=== PATIENT | male | born 1945 | race Caucasian/White ===

== ENCOUNTER 2016-12-29 09:31 | Day surgery (SDC) | payer MEDICARE ==
[2016-12-28 09:59] VITALS: BMI 38.1
[2016-12-29 10:23] VITALS: BP 155/80; PULSE 94; RESP 18
[2016-12-29 10:35] LABS: Prothrombin Time 53.8 sec (9.0-12.0)
[2016-12-29 10:52] LABS: Glucose,Whole Blood 113 mg/dL (75-99)
[2016-12-29 11:04] LABS: INR 5.4 (<1.1)
== END 2016-12-29 11:25 | disposition home or self-care (01) ==
LOC: CATHCVL 09:31
PROVIDERS: ATTEND Internal Medicine Cardiovascular Disease
DX: I48.92 Unspecified atrial flutter (principal)
CPT/HCPCS: 85610

== ENCOUNTER 2017-01-03 10:32 | Day surgery (SDC) | payer MEDICARE ==
[2016-12-30 11:16] VITALS: BMI 38.1
[2017-01-03 11:04] LABS: Glucose,Whole Blood 103 mg/dL (75-99)
[2017-01-03] MEDS ORDERED: SODIUM CHLORIDE 0.9% 1,000 ML IV ONE (11:11)
[2017-01-03 11:38] LABS: INR 1.8 (<1.1); Prothrombin Time 17.2 sec (9.0-12.0)
[2017-01-03] MEDS: BENZOCAINE SPRAY 100 APPLIC/CAN MUCOUS MEM ONE ×2 (12:00→12:03)
[2017-01-03] MEDS ORDERED: SODIUM CHLORIDE 0.9% 500 ML IV ONE (12:01)
[2017-01-03] MEDS ORDERED: fentaNYL (PF) 50 MCG/ML 2 ML AMP IV ONE (12:28)
[2017-01-03] MEDS ORDERED: MIDAZOLAM 2 MG/2 ML VIAL IV ONE (12:29)
[2017-01-03 12:39] VITALS: RESP 16
[2017-01-03] MEDS ORDERED: SODIUM CHLORIDE 0.9% 1,000 ML IV SCH ×2 (12:45→13:00)
[2017-01-03 15:09] VITALS: PULSE 76
[2017-01-03 15:10] VITALS: BP 149/85; TEMP 98.6
--- NOTE | 2017-01-03 19:04 | ECHOT ---
DATE OF SERVICE: CLINICAL INFORMATION: This transesophageal echocardiogram was performed to assess the bioprosthetic aortic valve. The patient was given intravenous sedation with Versed and fentanyl and transesophageal echocardiogram was performed without any complications. FINDINGS: Left ventricular chamber is normal in size. There is evidence of left ventricular hypertrophy with normal left ventricular systolic function. Mitral valve morphology is normal. Mild mitral regurgitation is noted. Left atrial appendage is clear. There is a bioprosthetic valve visualized in aortic position. There is thickening of the leaflet noted. The main gradient across the aortic valve is about 35 mmHg. No aortic regurgitation is noted. Tricuspid valve morphology is normal. Interatrial septum is intact. There is no evidence of any PFO. There is no evidence of thrombus or any vegetations on the bioprosthetic valve. FINAL IMPRESSION: There is evidence of thickening of the bioprosthetic aortic valve where the leaflets are opening fairly nicely. There is increase in the gradient across the bioprosthetic valve. However, there is no evidence of any thrombus or vegetations on the prosthetic wall. No evidence of aortic regurgitation noted. There is no evidence of thrombus in left atrial appendage. The left ventricular systolic function is normal. There is evidence of left ventricular hypertrophy.
== END 2017-01-03 14:00 | disposition home or self-care (01) ==
LOC: CATHCVL 10:32
PROVIDERS: ATTEND Internal Medicine Cardiovascular Disease
DX: I48.92 Unspecified atrial flutter (principal); Z95.2 Presence of prosthetic heart valve; I49.3 Ventricular premature depolarization; I51.7 Cardiomegaly; I34.0 Nonrheumatic mitral (valve) insufficiency; I10 Essential (primary) hypertension; E11.9 Type 2 diabetes mellitus without complications; E78.2 Mixed hyperlipidemia; Z79.899 Other long term (current) drug therapy; Z79.82 Long term (current) use of aspirin; Z79.84 Long term (current) use of oral hypoglycemic drugs; Z87.891 Personal history of nicotine dependence; Z82.3 Family history of stroke; Z82.49 Family history of ischemic heart disease and other diseases of the circulatory system
CPT/HCPCS: 93312; 93320; 93325; 85610; J2250; J3010; 80048; 85027

== ENCOUNTER 2017-01-04 10:18 | Day surgery (SDC) | payer MEDICARE ==
[2016-12-30 11:27] VITALS: BMI 38.1
[~2017-01-04 10:18] MED LIST: SODIUM CHLORIDE 0.9% 1,000 ML IV SCH
[2017-01-04 10:58] LABS: Glucose,Whole Blood 100 mg/dL (75-99)
[2017-01-04 11:14] LABS: INR 1.8 (<1.1); Prothrombin Time 17.7 sec (9.0-12.0)
[2017-01-04] MEDS ORDERED: MIDAZOLAM 2 MG/2 ML VIAL ONE (12:04)
[2017-01-04] MEDS ORDERED: fentaNYL (PF) 50 MCG/ML 2 ML AMP ONE (12:04)
[2017-01-04] MEDS ORDERED: DEXAMETHASONE SOD PHOS (MDV) 100 MG/10 ML VIAL ONE (12:04)
[2017-01-04] MEDS ORDERED: HEPARIN SODIUM,PORCINE/D5W PMX 25,000 UNIT in DEXTROSE/WATER 1 500ML.BAG IV ONE (12:04)
[2017-01-04] MEDS ORDERED: HEPARIN SODIUM 1,000 UNIT/ML VIAL ONE (12:04)
[2017-01-04] MEDS ORDERED: PHENYLEPHRINE-0.9% NACL SYG 1 MG/10 ML SYRINGE ONE (12:04)
[2017-01-04] MEDS ORDERED: PROPOFOL 10 MG/ML 20 ML VIAL IV ONE (12:04)
[2017-01-04] MEDS ORDERED: SODIUM CHLORIDE 0.9% 1,000 ML IV ONE (12:04)
[2017-01-04] MEDS ORDERED: ISOPROTERENOL 250 MCG/1.25 ML SYR IV ONE (12:04)
[2017-01-04] MEDS ORDERED: SUCCINYLCHOLINE CHLORIDE VIAL 200 MG/10 ML VIAL IV ONE (12:04)
[2017-01-04] MEDS ORDERED: LIDOCAINE 2% INJ 20 MG/ML SQ ONE ×2 (12:46→12:49)
[2017-01-04] MEDS ORDERED: HEPARIN SODIUM (1,000 UNIT/ML) 1,000 UNIT in SODIUM CHLORIDE 0.9% 1,000 ML IRRIGATION ONE (14:00)
[2017-01-04] MEDS ORDERED: ACETAMINOPHEN IV (For NPO) 1,000 MG in EMPTY BAG 1 BAG IVPB ONE (16:11)
[2017-01-04] MEDS ORDERED: ACETAMINOPHEN TAB 325 MG TAB PO PRN (16:11)
[2017-01-04] MEDS ORDERED: HYDROcodone/APAP 5-325MG 1 EACH TAB PO PRN (16:11)
[2017-01-04] MEDS ORDERED: LEVOTHYROXINE SODIUM PO SCH (16:15)
[2017-01-04 16:26] LABS: Glucose,Whole Blood 112 mg/dL (75-99)
--- NOTE | 2017-01-04 17:48 | PCN ---
DATE OF PROCEDURE: 01/04/2017 This is a 71-year-old male patient who was admitted with very symptomatic atrial flutter. He has left ventricular hypertrophy on account of aortic stenosis, status post bioprosthetic aortic valve which is calcified. He has a mild to moderate elevated gradient. He underwent a KELLE recently by Dr. Jaret Willoughby, who felt that medical management may be indicated at this time and does not require any valve replacement. The patient was brought in for an atrial flutter ablation. His INR was still subtherapeutic, but his KELLE did not show any intracardiac mass or thrombus. IV heparin was given throughout the procedure and the dose of Coumadin was increased to 12 mg p.o. daily. The patient was brought to the EP lab in a fasting state. Written informed consent was obtained prior to the procedure. The initial part of the procedure was performed with conscious sedation, but because he has severe sleep apnea, toward the end during the ablation procedure he had to be intubated briefly to provide catheter stability and complete the ablation ( ). Venous sheaths were placed in the right and left femoral veins. Via these, diagnostic catheters were placed in the right half (high right atrial catheter, His bundle catheter, RV catheter and the coronary sinus catheter). Baseline measurements were as follows: sinus cycle 884 ms, ID interval 236 ms, QRS 75 ms, QT 389 ms, AH interval 133 ms, HV interval 67 ms. Sinus node recovery times at 600, 500 and 400 ms were 1295, 1331, and 1228 ms. Corresponding corrected sinus node recovery times were within normal limits. There were no obvious ( ) slow pathway conduction. No delta waves were noted. AV node Wenckebach block 500 ms. AV node ERP 600/380 ms. AV node Wenckebach block from the coronary sinus was 600 ms. Isuprel was started. AV node Wenckebach block improved to 290 ms. Left bundle branch block aberrancy was noted. VA Wenckebach block 320 ms. Atrial extrastimulation was performed. ERP ( ) /310 ms. No other SVT was induced. No atrial fibrillation was induced. Intracardiac echocardiography was performed. The right atrial isthmus was identified. Interatrial septum was identified. Three-D mapping was performed. The isthmus was identified. In the mid isthmus area there was a small artery noted (branch of the RCA). RF ablation was performed from the second ( ) to the eustachian ridge. A complete ( ) block was made and bidirectional block was proven. This was a difficult ablation. Catheter stability was an issue and therefore intubation had to be performed. In addition, the mid isthmus was somewhat difficult to ablate on account of the arterial flow within the artery in the mid isthmus acting as a heat ( ). However, good contact force was achieved. Good power was achieved. There were no ECG changes noted. There were no ST-T changes noted with ablation. Following ablation, EKG was repeated and no ST-T changes were noted. All catheters were removed at the end of the procedure. Heparin was discontinued. Sheaths were removed. The dose of Coumadin was then increased to 12.5 mg p.o. daily. RESULT: 1. Successful ablation for atrial flutter with bidirectional block. 2. Normal sinus node function with normal AV node function without evidence for slow pathway conduction ( ) any excessive pathway conduction. Left bundle branch block aberrancy noted with atrial pacing.
[2017-01-04] MEDS ORDERED: WARFARIN 10 MG TAB PO SCH (18:00)
[2017-01-04] MEDS ORDERED: WARFARIN 2.5 MG TAB PO SCH (18:00)
[2017-01-04] MEDS ORDERED: FUROSEMIDE 20 MG TAB PO SCH (21:00)
[2017-01-04] MEDS ORDERED: PRAVASTATIN SODIUM 40 MG TAB PO SCH (21:00)
[2017-01-04] MEDS: HYDROcodone/APAP 7.5-325MG 1 EACH TAB PO PRN (21:27)
[2017-01-04 21:51] LABS: Glucose,Whole Blood 226 mg/dL (75-99)
[2017-01-04] MEDS: metFORMIN 500 MG TAB PO SCH (22:20)
[2017-01-04] MEDS: GABAPENTIN 300 MG CAP PO SCH (22:20)
[2017-01-05] MEDS: HYDROcodone/APAP 7.5-325MG 1 EACH TAB PO PRN ×2 (04:42→08:52)
[2017-01-05] MEDS ORDERED: LEVOTHYROXINE 100 MCG TAB PO SCH (06:30)
[2017-01-05] MEDS ORDERED: LEVOTHYROXINE 75 MCG TAB PO SCH (06:30)
[2017-01-05 07:04] LABS: Glucose,Whole Blood 162 mg/dL (75-99)
[2017-01-05 07:32] LABS: INR 2.6 (<1.1); Prothrombin Time 25.5 sec (9.0-12.0)
--- NOTE | 2017-01-05 08:39 | PN ---
Harry Mast is a 71-year-old male patient of Dr. Jaret Willoughby who underwent atrial flutter ablation yesterday. He is doing well. He denied any chest discomfort, dizziness, lightheadedness. He has a sore throat from being intubated. He also underwent KELLE several days back. On examination, his groins have healed well. There is no hematoma, no swelling, no tenderness. He is ambulating in the hallways. Blood pressure is 144/74 mmHg, temperature 97.8 degrees Fahrenheit, pulse rate in the 70s. Head and neck examination is normal. Heart sounds are normal. Lungs are clear on auscultation. IMPRESSION: 1. Very symptomatic atrial flutter. 2. Atrial fibrillation. 3. Left ventricular hypertrophy secondary to aortic valve disease and hypertension. 4. Aortic valve disease, status post aortic valve replacement bioprosthetic with moderate prosthetic valve stenosis. PLAN: Continue Coumadin at 10 mg p.o. daily. PT, INR check in [address] Willoughby in 5 days.
[2017-01-05] MEDS: metFORMIN 500 MG TAB PO SCH (08:47)
[2017-01-05] MEDS: GABAPENTIN 300 MG CAP PO SCH (08:48)
[2017-01-05] MEDS ORDERED: LINAGLIPTIN 5 MG TABLET PO SCH (09:00)
[2017-01-05] MEDS ORDERED: FUROSEMIDE 40 MG TAB PO SCH (09:00)
[2017-01-05] MEDS ORDERED: LISINOPRIL 20 MG TAB PO SCH (09:00)
[2017-01-05] MEDS ORDERED: ASPIRIN 81 MG CHEW PO SCH (09:00)
[2017-01-05] MEDS ORDERED: amLODIPine 5 MG TAB PO SCH (09:00)
[2017-01-05 12:02] LABS: Glucose,Whole Blood 169 mg/dL (75-99)
[2017-01-05 12:56] VITALS: BP 144/72; PULSE 67; RESP 16; TEMP 97.2
--- NOTE | 2017-01-07 09:59 | CDI ---
Hannah. We need some more information in order to properly code and bill for this encounter. Your Procedure Note states "the initial part of the procedure was performed with conscious sedation", but there is no documentation of drugs administered for that purpose. Was the conscious sedation performed or not? In order to charge for conscious sedation, we need to know the length of time and we need documentation of the drug administration. If conscious sedation was not done, then we need an addendum to the operative report stating it was not. If there is any confusion about what is needed, please contact my trust manager assistant, Lisbet Tao, . Thank you JACK Rojas
[2017-01-11] MEDS ORDERED: LEVOTHYROXINE 88 MCG TAB PO SCH (06:30)
--- NOTE | 2017-01-28 14:48 | CDI ---
Hannah. We need some more information in order to properly code and bill for this encounter. Your Procedure Note states "the initial part of the procedure was performed with conscious sedation", but there is no documentation of drugs administered for that purpose. Was the conscious sedation performed or not? In order to charge for conscious sedation, we need to know the length of time and we need documentation of the drug administration. If conscious sedation was not done, then we need an addendum to the operative report stating it was not. If there is any confusion about what is needed, please contact my mobile marketing manager, Lisbet Tao, . Thank you JACK Rojas
--- NOTE | 2017-02-11 15:01 | PCN ---
DATE OF PROCEDURE: ADDENDUM: Unconscious sedation was utilized via M.A.C. technique with rapid sequence intubation and subsequent intubation performed with assistance of a Glidescope. This is in keeping with the anesthesia record of the proper anesthesia being performed on this patient.
== END 2017-01-05 13:33 | disposition home or self-care (01) ==
LOC: CATHEP 10:18 → 3OBS 15:39 → CATHEP 01-05 13:33
PROVIDERS: ATTEND Internal Medicine Clinical Cardiac Electrophysiology
DX: I48.92 Unspecified atrial flutter (principal); I48.91 Unspecified atrial fibrillation; I51.7 Cardiomegaly; I35.0 Nonrheumatic aortic (valve) stenosis; Z95.2 Presence of prosthetic heart valve; I10 Essential (primary) hypertension; I44.7 Left bundle-branch block, unspecified; I44.0 Atrioventricular block, first degree; R06.02 Shortness of breath; E78.2 Mixed hyperlipidemia; E11.9 Type 2 diabetes mellitus without complications; G47.33 Obstructive sleep apnea (adult) (pediatric); Z82.49 Family history of ischemic heart disease and other diseases of the circulatory system; Z79.01 Long term (current) use of anticoagulants; Z79.84 Long term (current) use of oral hypoglycemic drugs; Z79.82 Long term (current) use of aspirin; Z79.899 Other long term (current) drug therapy; Z88.5 Allergy status to narcotic agent; Z88.0 Allergy status to penicillin; Z87.891 Personal history of nicotine dependence
CPT/HCPCS: 93623; 93662; 93613; 93653; 85610 ×2; C1894 ×2; C1769 ×2; C1893; C1730 ×3; C1759; C1732; J2001; J2250; J0330; J1644 ×2; J3010; J1100; J2370; J2704

== ENCOUNTER → 2018-12-14 | Day surgery (SDC) | payer MEDICARE ==
[2018-12-08 11:59] VITALS: BMI 37.3
[~2018-12-14] MED LIST changes: +BENZOCAINE SPRAY 1 CAN MUCOUS MEM ONE; +MIDAZOLAM 2 MG/2 ML VIAL IVP ONE; -SODIUM CHLORIDE 0.9% 1,000 ML IV SCH; +SODIUM CHLORIDE 0.9% 500 ML 500 ML IV ONE; +fentaNYL (PF) 50 MCG/ML 2 ML AMP IVP ONE; +fentaNYL (PF) 50 MCG/ML 2 ML AMP ONE
[2018-12-14 10:06] VITALS: TEMP 98.2
[2018-12-14 10:08] LABS: Glucose,Whole Blood 105 mg/dL (75-99)
[2018-12-14 10:16] LABS: INR 2.4 (<1.2); Prothrombin Time 23.4 sec (9.0-12.0)
[2018-12-14 12:19] VITALS: BP 139/67; PULSE 68; RESP 18
--- NOTE | 2018-12-14 12:25 | ECHOT ---
TRANSESOPHAGEAL ECHOCARDIOGRAM This transesophageal echocardiogram was performed to assess the bioprosthetic aortic valve stenosis. This patient has a history of aortic valve stenosis as an outpatient. Transthoracic echocardiogram revealed a peak gradient of 95 and mean gradient of 58 mmHg across the aortic valve as well as moderate degree of aortic regurgitation. In view of that, the patient was advised further evaluation with a transesophageal echocardiogram. PROCEDURE: Patient was given intravenous sedation with Versed and fentanyl and transesophageal echocardiogram was performed without any complications. The left ventricular chamber is normal in size with moderate degree of left ventricular hypertrophy and normal left ventricular systolic function. Left atrium is moderately enlarged. Mitral valve morphology is normal. There is mild to moderate degree of mitral regurgitation noted. Left atrial appendage is probably clipped in the past. No flow was noted in the left atrial appendage. There is no evidence of any thrombus. The bioprosthetic aortic valve is thickened. There is a evidence of turbulent flow in the left ventricular outflow tract as well as severe turbulent flow noted in the ascending aorta. There is evidence of moderate degree of aortic regurgitation. Interatrial septum is intact. There is no evidence of any PFO. Descending thoracic aorta shows evidence of moderate degree of diffuse atherosclerotic plaque. FINAL IMPRESSION: 1. There is a thickening and calcification of the bioprosthetic aortic valve with significant turbulence across the aortic valve. The mean gradient of 58 mmHg was noted by transthoracic echo. There is a moderate degree of aortic regurgitation. It appears that part of the gradient across the prosthetic is secondary to prosthetic mismatch. 2. Left ventricular systolic function is normal. There is moderate degree of left ventricular hypertrophy. There is evidence of mild to moderate aortic regurgitation. RECOMMENDATIONS: We will refer the patient to [facility] for possible TAVR. MMODL / IJN: [id number] /
== END ==
LOC: CATHCVL 09:29
PROVIDERS: ATTEND Internal Medicine Cardiovascular Disease
DX: I35.1 Nonrheumatic aortic (valve) insufficiency (principal); Z95.2 Presence of prosthetic heart valve; I11.9 Hypertensive heart disease without heart failure; E78.2 Mixed hyperlipidemia; E11.9 Type 2 diabetes mellitus without complications; E66.9 Obesity, unspecified; Z68.37 Body mass index [BMI] 37.0-37.9, adult; Z82.49 Family history of ischemic heart disease and other diseases of the circulatory system; Z87.891 Personal history of nicotine dependence; Z79.01 Long term (current) use of anticoagulants; Z79.84 Long term (current) use of oral hypoglycemic drugs; Z79.1 Long term (current) use of non-steroidal anti-inflammatories (NSAID); Z79.82 Long term (current) use of aspirin; Z79.890 Hormone replacement therapy; Z79.899 Other long term (current) drug therapy; Z88.5 Allergy status to narcotic agent; Z88.0 Allergy status to penicillin
CPT/HCPCS: 93312; 93320; 93325; 85610; J2250; J3010

== ENCOUNTER → 2018-12-19 | Outpatient (CLI) | payer MEDICARE ==
--- NOTE | 2018-12-19 08:26 | CT ---
EXAMINATION TYPE: CT sinus wo con DATE OF EXAM: 12/19/2018 COMPARISON: None HISTORY: Multiple injuries over the years. Complains of congestion and pressure. CT DLP: [address] of the paranasal sinuses was performed in the axial and coronal planes. Bone and soft tissue settings are submitted. There is severe mucosal thickening involving the ethmoid air cells. Underlying polyposis is not exclu ded. There is mild mucosal thickening of the maxillary sinuses, frontal sinuses and sphenoid sinus. A ir-fluid level left maxillary sinus may reflect acute component. The osteal meatal units are occluded bilaterally. The nasal septum is deviated from right to left. No bony destructive changes are seen within the field of view. IMPRESSION: 1. Pansinusitis with underlying ethmoidal polyposis difficult to exclude. 2. Air-fluid level left maxillary sinus may reflect the acute component. 3. Obstruction of the bilateral ostiomeatal units.
== END | disposition home or self-care (01) ==
LOC: RADCTMAIN 08:04
PROVIDERS: ATTEND Otolaryngology
DX: J34.89 Other specified disorders of nose and nasal sinuses (principal); J32.9 Chronic sinusitis, unspecified
CPT/HCPCS: 70486

== ENCOUNTER → 2019-01-02 | Outpatient (CLI) | payer MEDICARE ==
[2019-01-02 12:11] LABS: Basophils # (A) 0.1 k/uL (0-0.2); Basophils % (A) 1 %; Eosinophils # (A) 0.6 k/uL (0-0.7); Eosinophils % (A) 6 %; HGB 12.1 gm/dL (13.0-17.5); Lymphocytes % (A) 35 %; MCH 29.2 pg (25.0-35.0); MCHC 31.8 g/dL (31.0-37.0); MCV 91.8 fL (80.0-100.0); Mean Platelet Volume 7.9; Monocytes # (A) 0.6 k/uL (0-1.0); Monocytes % (A) 7 %; Neutrophils # (A) 3.9 k/uL (1.3-7.7); Neutrophils % (A) 46 %; Platelet Count 208 k/uL (150-450); RBC 4.14 m/uL (4.30-5.90); RDW 14.7 % (11.5-15.5); WBC 8.6 k/uL (3.8-10.6)
[2019-01-02 16:33] LABS: Albumin 4.8 g/dL (3.80-4.90); Anion Gap 7.8 mmol/L (4.00-12.00); Carbon Dioxide 27.2 mmol/L (21.6-31.8); Globulin 2.4 g/dL (1.6-3.3); Potassium 4.1 mmol/L (3.5-5.5); Total Bilirubin 0.8 mg/dL (0.3-1.2); Total Protein 7.2 g/dL (6.2-8.2)
== END ==
LOC: LABWHC1 09:54
PROVIDERS: ATTEND Student in an Organized Health Care Education/Training Program
DX: I35.1 Nonrheumatic aortic (valve) insufficiency (principal)
CPT/HCPCS: 36415; 80053; 83880; 85025

== ENCOUNTER → 2019-03-02 | Outpatient (CLI) | payer MEDICARE ==
[2019-03-02 10:49] LABS: Basophils # (A) 0.1 k/uL (0-0.2); Basophils % (A) 1 %; Eosinophils # (A) 0.5 k/uL (0-0.7); Eosinophils % (A) 8 %; HCT 35.6 % (39.0-53.0); HGB 11.2 gm/dL (13.0-17.5); Lymphocytes # (A) 2.2 k/uL (1.0-4.8); Lymphocytes % (A) 33 %; MCH 29.3 pg (25.0-35.0); MCHC 31.5 g/dL (31.0-37.0); MCV 93.1 fL (80.0-100.0); Mean Platelet Volume 8.1; Monocytes # (A) 0.4 k/uL (0-1.0); Monocytes % (A) 6 %; Neutrophils # (A) 3.1 k/uL (1.3-7.7); Neutrophils % (A) 48 %; Platelet Count 181 k/uL (150-450); RBC 3.82 m/uL (4.30-5.90); RDW 15.2 % (11.5-15.5); WBC 6.5 k/uL (3.8-10.6)
[2019-03-02 11:02] LABS: INR 1.5 (<1.2)
[2019-03-02 16:08] LABS: Albumin 4.4 g/dL (3.80-4.90); Anion Gap 7.8 mmol/L (4.00-12.00); Calcium 9.6 mg/dL (8.7-10.3); Carbon Dioxide 26.2 mmol/L (21.6-31.8); Globulin 2.2 g/dL (1.6-3.3); Potassium 3.9 mmol/L (3.5-5.5); Total Bilirubin 0.8 mg/dL (0.3-1.2); Total Protein 6.6 g/dL (6.2-8.2)
== END | disposition home or self-care (01) ==
LOC: LABWHC1 09:38
PROVIDERS: ATTEND Student in an Organized Health Care Education/Training Program
DX: I35.0 Nonrheumatic aortic (valve) stenosis (principal); I51.9 Heart disease, unspecified
CPT/HCPCS: 36415; 80053; 83735; 83880; 85025; 85610

== ENCOUNTER → 2023-02-02 | Outpatient (CLI) | payer MEDICARE ==
[2023-02-02 16:12] LABS: African American GFR (CKD) 64.9 (60.0-200.0); Albumin 4.7 g/dL (3.8-4.9); Albumin/Globulin Ratio 1.65 (1.60-3.17); Anion Gap 11.7 mmol/L (10.00-18.00); BUN/Creat Ratio 18.4 Ratio (12.00-20.00); Calcium 10.2 mg/dL (8.7-10.3); Carbon Dioxide 27.7 mmol/L (20.0-27.5); Globulin 2.8 g/dL (1.6-3.3); Potassium 4.2 mmol/L (3.5-5.5); Total Bilirubin 0.7 mg/dL (0.30-1.20); Total Protein 7.5 g/dL (6.2-8.2)
== END | disposition home or self-care (01) ==
LOC: LABWHC1 09:31
PROVIDERS: ATTEND Nurse Practitioner Adult Health
DX: I48.0 Paroxysmal atrial fibrillation (principal)
CPT/HCPCS: 36415; 80053; 83880; 84443

== ENCOUNTER 2023-03-14 05:41 | Day surgery (SDC) | payer MEDICARE ==
[~2023-03-14 05:41] MED LIST changes: -BENZOCAINE SPRAY 1 CAN MUCOUS MEM ONE; +LACTATED RINGERS 1,000 ML IV SCH; +LIDOCAINE 1% (10MG/ML) FOR IV START INTRADERMA PRN; -MIDAZOLAM 2 MG/2 ML VIAL IVP ONE; -SODIUM CHLORIDE 0.9% 500 ML 500 ML IV ONE; -fentaNYL (PF) 50 MCG/ML 2 ML AMP IVP ONE; -fentaNYL (PF) 50 MCG/ML 2 ML AMP ONE
[2023-03-14 06:36] VITALS: TEMP 97.2
[2023-03-14 06:55] LABS: Glucose,Whole Blood 101 mg/dL (70-110)
[2023-03-14] MEDS ORDERED: PROPOFOL 10 MG/ML 20 ML VIAL IV ONE (07:05)
[2023-03-14] MEDS ORDERED: LIDOCAINE 2% INJ 20 MG/ML (2 ML VIAL) ONE (07:05)
[2023-03-14] MEDS ORDERED: BENZOCAINE SPRAY 1 CAN TOPICAL ONE (07:13)
[2023-03-14 07:19] LABS: African American GFR (CKD) 66 (>60 ml/min/1.73 sqM); Anion Gap 11 mmol/L; Blood Urea Nitrogen 33 mg/dL (9-20); Calcium 9.3 mg/dL (8.4-10.2); Carbon Dioxide 27 mmol/L (22-30); Chloride 103 mmol/L (98-107); Glucose 107 mg/dL (74-99); Non-African American GFR(CKD) 58 (>60 ml/min/1.73 sqM); Potassium 3.6 mmol/L (3.5-5.1); Sodium 141 mmol/L (137-145)
--- NOTE | 2023-03-14 07:36 | P.PCN ---
Date of Procedure: 03/14/23 Description of Procedure: Indication: Atrial fibrillation Procedure Description: After explaining the procedure to the patient, it's risk and complications, blood pressure, heart rate and O2 saturation were monitored. The throat was sprayed with Cetacaine. Patient received sedation per anesthesia department. The probe was introduced into the esophagus without difficulty. Images were obtained. Following that, the probe was removed. There was no immediate complication. Findings: Left atrial size is dilated, left atrial appendage is normal. Left ventricular size and systolic function are normal. A bioprosthetic aortic valve was noted. Mitral valve appears to be normal. The tricuspid valve is normal. No pericardial effusion was noted. Descending thoracic aorta revealed mild atherosclerotic changes. Contrast bubble study revealed no shunting across the intra-atrial septum. Doppler: Pulse wave and color Doppler were obtained, revealed mild mitral and tricuspid regurgitation with trace aortic regurgitation. There was no shunting across the intra-atrial septum Conclusion: 1. Dilated left atrium with normal appearance of the left atrial appendage 2. Normal physical size and systolic function 3. Bioprosthetic aortic valve with normal appearance and trace aortic regurgitation 4. And mild mitral and tricuspid regurgitation 5. No pericardial effusion Cardioversion: After performing a KELLE and obtaining sedated state a synchronized biphasic cardioversion using 150, 200 and subsequently 200 J were unsuccessful in restoring sinus mechanism, there was no immediate complications.
[2023-03-14] MEDS ORDERED: SODIUM CHLORIDE 0.9% 1,000 ML IV SCH (07:45)
[2023-03-14 07:46] VITALS: RESP 16
[2023-03-14 08:28] VITALS: BP 144/89; PULSE 84
[2023-03-14] MEDS ORDERED: NON FORMULARY DRUG (Fenofibrate Nanocrystallized [Fenofibrate] 145 MG Tablet) PO SCH (09:00)
[2023-03-14] MEDS ORDERED: RIVAROXABAN 20 MG TAB PO SCH (09:00)
[2023-03-14] MEDS ORDERED: amLODIPine 5 MG TAB PO SCH (09:00)
[2023-03-14] MEDS ORDERED: LEVOTHYROXINE SODIUM 175 MCG PO SCH (09:00)
[2023-03-14] MEDS ORDERED: NON FORMULARY DRUG (Sitagliptin Phos/Metformin Hcl [Janumet 50-1,000 Mg Tablet] 1 EACH Tab PO SCH (09:00)
[2023-03-14] MEDS ORDERED: LOSARTAN 50 MG TAB PO SCH (09:00)
[2023-03-14] MEDS ORDERED: MELOXICAM 15 MG PO SCH (21:00)
[2023-03-14] MEDS ORDERED: PRAVASTATIN SODIUM 40 MG TAB PO SCH (21:00)
[2023-03-14] MEDS ORDERED: FUROSEMIDE 40 MG TAB PO SCH (21:00)
== END 2023-03-14 08:45 | disposition home or self-care (01) ==
LOC: OR 05:41
PROVIDERS: ATTEND Internal Medicine Interventional Cardiology
DX: I48.91 Unspecified atrial fibrillation (principal); I08.3 Combined rheumatic disorders of mitral, aortic and tricuspid valves
CPT/HCPCS: 93312; 93320; 93325; 92960; 80048; J2704; J2001

== ENCOUNTER 2023-04-17 17:41 | Observation (INO) | payer MEDICARE ==
[2023-04-17] MEDS ORDERED: ASPIRIN 81 MG PO STA (18:08)
[2023-04-17] MEDS ORDERED: LIDOCAINE 5% PATCH TOPICAL STA (18:09)
[2023-04-17] MEDS ORDERED: KETOROLAC 15 MG/ML 1 ML VIAL IVP STA (18:09)
[2023-04-17] MEDS ORDERED: CYCLOBENZAPRINE 10 MG TAB PO STA (18:09)
[2023-04-17 18:27] LABS: Basophils % (A) 0 %; Eosinophils # (A) 0.7 k/uL (0-0.7); Eosinophils % (A) 8 %; HCT 45.4 % (39.0-53.0); HGB 15.6 gm/dL (13.0-17.5); Lymphocytes # (A) 3.5 k/uL (1.0-4.8); Lymphocytes % (A) 40 %; MCH 32.8 pg (25.0-35.0); MCHC 34.5 g/dL (31.0-37.0); MCV 95.3 fL (80.0-100.0); Mean Platelet Volume 8.8; Monocytes # (A) 0.7 k/uL (0-1.0); Monocytes % (A) 9 %; Neutrophils # (A) 3.3 k/uL (1.3-7.7); Neutrophils % (A) 38 %; Platelet Count 192 k/uL (150-450); RBC 4.76 m/uL (4.30-5.90); RDW 13.5 % (11.5-15.5); WBC 8.7 k/uL (3.8-10.6)
[2023-04-17 18:45] LABS: NT-Pro-B-Type Natriuretic Pept 85 pg/mL; Partial Thromboplastin Time 29.1 sec (22.0-30.0); Prothrombin Time 10.5 sec (9.0-12.0)
--- NOTE | 2023-04-17 18:45 | XR ---
EXAMINATION TYPE: XR chest 2V DATE OF EXAM: 04/17/2023 6:19 PM COMPARISON: None TECHNIQUE: XR chest 2V Frontal and lateral views of the chest. CLINICAL INDICATION:Male, 78 years old with history of Chest Pain; FINDINGS: Lungs/Pleura: There is no evidence of pleural effusion, focal consolidation, or pneumothorax. Pulmonary vascularity: Unremarkable. Heart/mediastinum: Cardiomediastinal silhouette is enlarged. Post aortic valve repair changes. Musculoskeletal: No acute osseous pathology. Midline sternotomy wires are noted. IMPRESSION: Low lung volumes with a generalized hazy appearance which could represent atelectasis versus pulmonar y edema correlate with serum BNP.
[2023-04-17 18:46] LABS: ALT 25 U/L (4-49); African American GFR (CKD) >90 (>60 ml/min/1.73 sqM); Anion Gap 12 mmol/L; Blood Urea Nitrogen 20 mg/dL (9-20); Calcium 10.2 mg/dL (8.4-10.2); Carbon Dioxide 25 mmol/L (22-30); Chloride 101 mmol/L (98-107); Glucose 131 mg/dL (74-99); Non-African American GFR(CKD) 84 (>60 ml/min/1.73 sqM); Sodium 138 mmol/L (137-145); Total Bilirubin 0.9 mg/dL (0.2-1.3); Total Protein 9.2 g/dL (6.3-8.2)
[2023-04-17 18:47] LABS: AST 34 U/L (17-59); Alkaline Phosphatase 85 U/L (38-126); Magnesium 1.9 mg/dL (1.6-2.3)
--- NOTE | 2023-04-17 18:47 | CT ---
EXAMINATION TYPE: CT cervical spine wo con CT DLP: 847.8 mGycm, Automated exposure control for dose reduction was used. DATE OF EXAM: 04/17/2023 6:34 PM COMPARISON: None. CLINICAL INDICATION:Male, 78 years old with history of neck strain/pain; PHH, c/o neck pain, no injur y TECHNIQUE: Axial CT images from the skull base to the inferior aspect of T2 we obtained without intra venous contrast. Coronal and sagittal reformatted images were also reviewed. Contrast used: mL of , (if blank None) Oral contrast used: (if blank None) FINDINGS: Fracture: None. Osseous structures: Multilevel degenerative disc disease changes with endplate spurring and disc oste ophyte complex's. Large osteophytes impresses upon the esophagus. Vertebral alignment: Alignment within normal limits. Spinal canal/Neural Foramina: Disc osteophyte complexes at C3-C7 with at least mild spinal canal sten osis. Facet joint uncovertebral joint arthropathy scattered throughout the cervical spine with varyin g degrees of neural foraminal stenosis. Neck soft tissues: Prevertebral soft tissues are within normal limits. Other: The airway is patent. The lung apices are clear. Atherosclerosis of the carotid bifurcations. IMPRESSION: 1. No evidence of cervical spine fracture. 2. Moderate multilevel degenerative disc disease. 3. Large osteophytes impress upon the esophagus
--- NOTE | 2023-04-17 18:52 | ED ---
General Adult HPI - General Chief complaint: Chest Pain Stated complaint: chest pain Time Seen by Provider: 04/17/23 17:51 Source: patient Mode of arrival: ambulatory Limitations: no limitations - History of Present Illness Initial comments: Patient is a 78-year-old male with past medical history remarkable for atrial fibrillation, aortic valve placement, CHF, diabetes, hypertension uses CPAP at night is presenting to the emergency Department complaining of neck strain-like symptoms which has been ongoing for the last 1-2 days as well as heart palpi tations. Also is experiencing worsening exertional dyspnea. States his legs are a little more swollen than baseline. Denies any PND. Chronically sleeps sitting up in a recliner. No worsening orthopnea from baseline. When asked about chest pain, he denies any darya chest pain, but states that he feels like his heart is beating fast. Currently denies any symptoms. His only acute symptom is the neck pain at this time. States he is compliant with medications. Presents for further evaluation at this time. As any injury. Denies any numbness. Denies any weakness. - Related Data Home Medications Medication Instructions Recorded Confirmed Furosemide [Lasix] 40 mg PO BID 12/28/16 04/17/23 Levothyroxine Sodium [Levoxyl] 175 mcg PO DAILY 12/28/16 04/17/23 amLODIPine [Norvasc] 10 mg PO DAILY 12/28/16 04/17/23 Losartan [Cozaar] 50 mg PO BID 12/08/18 04/17/23 Rivaroxaban [Xarelto] 20 mg PO HS 03/14/23 04/17/23 Atorvastatin [Lipitor] 20 mg PO DAILY 04/17/23 04/17/23 Meloxicam [Mobic] 7.5 mg PO BID 04/17/23 04/17/23 Pioglitazone [Actos] 30 mg PO DAILY 04/17/23 04/17/23 Potassium Chloride ER [K-Dur 10] 10 meq PO DAILY 04/17/23 04/17/23 cloNIDine HCL [Catapres] 0.1 mg PO HS 04/17/23 04/17/23 hydrALAZINE HCL [Apresoline] 50 mg PO BID 04/17/23 04/17/23 metFORMIN HCL [Glucophage] 1,000 mg PO BID 04/17/23 04/17/23 Allergies Allergy/AdvReac Type Severity Reaction Status Date / Time Penicillins Allergy Rash/Hives Verified 04/17/23 18:53 codeine AdvReac Itching Verified 04/17/23 18:53 Review of Systems ROS Statement: Those systems with pertinent positive or pertinent negative responses have been documented in the HPI. Review of Systems: CONST: Denies fever EYES: Denies blurry vision ENT: Denies nasal congestion C/V: Denies Chest pain RESP: Denies shortness of breath GI: Denies abdominal pain : Denies dysuria SKIN: Denies rash. MSK: Endorses neck pain NEURO: Denies headache ROS Other: All systems not noted in ROS Statement are negative. Past Medical History Past Medical History: Atrial Fibrillation, Heart Failure, Diabetes Mellitus, Hyperlipidemia, Hypertension, Osteoarthritis (OA), Sleep Apnea/CPAP/BIPAP, Thyroid Disorder Additional Past Medical History / Comment(s): uses CPAP, SOB w/exertion History of Any Multi-Drug Resistant Organisms: None Reported Past Surgical History: Appendectomy, Cardiac Valve Replacement, Heart Catheterization, Orthopedic Surgery Additional Past Surgical History / Comment(s): aortic valve replaced 2004, ganglion cyst, pain injections, LT ANKLE SUGERY Past Anesthesia/Blood Transfusion Reactions: No Reported Reaction Past Psychological History: No Psychological Hx Reported Smoking Status: Former smoker Past Alcohol Use History: None Reported Past Drug Use History: None Reported - Past Family History Father Family Medical History: Cancer General Exam - General Exam Comments Initial Comments: General: Appears in no acute distress. HEAD: Normal with no signs of head trauma. EYES: PERRLA, EOMI, conjunctiva normal, no discharge. ENT: Hearing grossly intact, normal oropharynx. RESPIRATORY: Clear breath sounds bilaterally. No wheezes, rales, or rhonchi. No hypoxia. No significant increased work of breathing. C/V: Regular rate and rhythm. S1 and S2 auscultated, mild to moderate bilateral symmetrical pitting edema in the lower extremities, peripheral pulses 2+ and intact throughout ABD: Abd is soft, nontender, nondistended EXT: Normal range of motion, no obvious deformity. No midline cervical, thoracic, lumbar spine tenderness palpation. Patient has bilateral trapezius muscle pain on palpation and with movement of the neck. Appears to be more of a muscle strain. SKIN: No rashes or lesions observed on exposed skin. NEURO: Alert and Oriented 4. Limitations: no limitations Course Vital Signs 04/17/23 04/17/23 04/17/23 17:43 18:00 18:40 Temperature 98 F 98.0 F Pulse Rate 77 74 Pulse Rate [ 75 Lead Simulation Modeling Engineer ] Respiratory 24 20 Rate Blood Pressure 150/74 159/87 O2 Sat by Pulse 99 94 L Oximetry 04/17/23 04/17/23 19:02 19:27 Temperature Pulse Rate 68 68 Pulse Rate [ Lead Simulation Modeling Engineer ] Respiratory 19 18 Rate Blood Pressure 135/78 140/78 O2 Sat by Pulse 97 96 Oximetry Medical Decision Making - Medical Decision Making Was pt. sent in by a medical professional or institution (, PA, [facility] [facility], urgent care, hospital, or fpc...) When possible be specific @ -No Did you speak to anyone other than the patient for history (EMS, parent, family, police, friend...)? What history was obtained from this source @ -No Did you review nursing and triage notes (agree or disagree)? Why? @ -I reviewed and agree with nursing and triage notes Were old charts reviewed (outside hosp., previous admission, EMS record, old EKG, old radiological studies, urgent care reports/EKG's, fpc records)? Report findings @ -Old EKG reviewed from December 2016 Differential Diagnosis (chest pain, altered mental status, abdominal pain women, abdominal pain men, vaginal bleeding, weakness, fever, dyspnea, syncope, headache, dizziness, GI bleed, back pain, seizure, CVA, palpatations, mental health, musculoskeletal)? @ -Differential Palpitations Ventricular arrhythmias, atrial arrhythmias, myocardial infarction, anemia, thyrotoxicosis, electrolyte imbalance, hypokalemia, pulmonary embolism, pulmonary disease, drugs, alcohol, anxiety, stress.... This is not meant to be an all-inclusive list. Differential Musculoskeletal Muscular strain, contusion, ligament sprain, fracture, arthritis, septic arthritis, bursitis, cellulitis, muscle spasm, nerve compression, DVT, arterial occlusion, herpes zoster, electrolyte abnormality, tumor.... This is not meant to be in all inclusive list EKG interpreted by me (3pts min.). @ -As above X-rays interpreted by me (1pt min.). @ -Chest x-ray appears to have mild bilateral pulmonary vascular congestion. CT interpreted by me (1pt min.). @ -CT cervical spine shows degenerative disc disease but no acute process. U/S interpreted by me (1pt. min.). @ -None done What testing was considered but not performed or refused? (CT, X-rays, U/S, labs)? Why? @ -None What meds were considered but not given or refused? Why? @ -None Did you discuss the management of the patient with other professionals (professionals i.e. , PA, [employer], lab, RT, psych nurse, social worker masters, manager wound care, teacher, boat officer, watch case polisher)? Give summary @ -Discussed admission with Dr. Adams who accepted the patient. Was smoking cessation discussed for >3mins.? @ -No Was critical care preformed (if so, how long)? @ -No Were there social determinants of health that impacted care today? How? (Homelessness, low income, unemployed, alcoholism, drug addiction, transportat ion, low edu. Level, literacy, decrease access to med. care, usp, rehab)? @ -No Was there de-escalation of care discussed even if they declined (Discuss DNR or withdrawal of care, Hospice)? DNR status @ -No What co-morbidities impacted this encounter? (DM, HTN, Smoking, COPD, CAD, Cancer, CVA, ARF, Chemo, Hep., AIDS, mental health diagnosis, sleep apnea, morbid obesity)? @ -A. fib, heart valve replacement, CHF Was patient admitted / discharged? Hospital course, mention meds given and route, prescriptions, significant lab abnormalities, going to OR and other pertinent info. @ -Based on the patient's presentation and physical exam, appears to be presenting with a neck strain as well as possible Cardiopulmonary symptoms at this time. Patient has palpitations with atypical chest discomfort. We will obtain a cardio pulmonary workup as well as imaging of the neck. He'll be symptomatically treated for a neck strain with Flexeril, Toradol, lidocaine patches was given an aspirin. Patient was in agreement this plan. Vital signs are within acceptable limits. EKG shows no signs of acute ischemia. CT cervical spine shows degenerative changes no obvious acute process. Chest x-ray shows possible mild bilateral pulmonary vascular congestion. Patient's labs are remarkable for a normal BNP. Troponin undetectable. Remainder of labs within acceptable limits. Patient was already given an aspirin and sent medically treated with a lidocaine patch, IV Toradol as well as Robaxin. On reevaluation, patient is feeling improved. We discussed his workup. Heart score is moderate at 4. I would like to admit him to observation for cardiology evaluation. He was in agreement this plan. Does believe that anxiety is playing a role in his symptoms as he does feel anxious. We will trial Him with a dose of Ativan. Cardiology consulted. I spoke with the admitting physician, Dr. Adams who accepted the patient. Undiagnosed new problem with uncertain prognosis? @ -No Drug Therapy requiring intensive monitoring for toxicity (Heparin, Nitro, Insulin, Cardizem)? @ -No Were any procedures done? @ -No ' Diagnosis/symptom? @ -Atypical chest pain, palpitations, neck strain Acute, or Chronic, or Acute on Chronic? @ -Acute Uncomplicated (without systemic symptoms) or Complicated (systemic symptoms)? @ -Uncomplicated Side effects of treatment? @ -none Exacerbation, Progression, or Severe Exacerbation] @ -no Poses a threat to life or bodily function? @ -Potentially yes - Lab Data Result diagrams: 04/17/23 18:13 04/17/23 18:13 Lab Results 04/17/23 04/17/23 04/17/23 Range/Units 18:13 18:13 18:13 WBC 8.7 (3.8-10.6) k/uL RBC 4.76 (4.30-5.90) m/uL Hgb 15.6 (13.0-17.5) gm/dL Hct 45.4 (39.0-53.0) % MCV 95.3 (80.0-100.0) fL MCH 32.8 (25.0-35.0) pg MCHC 34.5 (31.0-37.0) g/dL RDW 13.5 (11.5-15.5) % Plt Count 192 (150-450) k/uL MPV 8.8 Neutrophils % 38 % Lymphocytes % 40 % Monocytes % 9 % Eosinophils % 8 % Basophils % 0 % Neutrophils # 3.3 (1.3-7.7) k/uL Lymphocytes # 3.5 (1.0-4.8) k/uL Monocytes # 0.7 (0-1.0) k/uL Eosinophils # 0.7 (0-0.7) k/uL Basophils # 0.0 (0-0.2) k/uL PT 10.5 (9.0-12.0) sec INR 1.0 (<1.2) APTT 29.1 (22.0-30.0) sec Sodium 138 (137-145) mmol/L Potassium (3.5-5.1) mmol/L Chloride 101 (98-107) mmol/L Carbon Dioxide 25 (22-30) mmol/L Anion Gap 12 mmol/L BUN 20 (9-20) mg/dL Creatinine 0.87 (0.66-1.25) mg/dL Est GFR (CKD-EPI)AfAm >90 (>60 ml/min/1.73 sqM) Est GFR (CKD-EPI)NonAf 84 (>60 ml/min/1.73 sqM) Glucose 131 H (74-99) mg/dL Calcium 10.2 (8.4-10.2) mg/dL Magnesium 1.9 (1.6-2.3) mg/dL Total Bilirubin 0.9 (0.2-1.3) mg/dL AST 34 (17-59) U/L ALT 25 (4-49) U/L Alkaline Phosphatase 85 (38-126) U/L Troponin I (0.000-0.034) ng/mL NT-Pro-B Natriuret Pep 85 pg/mL Total Protein 9.2 H (6.3-8.2) g/dL Albumin 5.0 (3.5-5.0) g/dL 04/17/23 Range/Units 18:13 WBC (3.8-10.6) k/uL RBC (4.30-5.90) m/uL Hgb (13.0-17.5) gm/dL Hct (39.0-53.0) % MCV (80.0-100.0) fL MCH (25.0-35.0) pg MCHC (31.0-37.0) g/dL RDW (11.5-15.5) % Plt Count (150-450) k/uL MPV Neutrophils % % Lymphocytes % % Monocytes % % Eosinophils % % Basophils % % Neutrophils # (1.3-7.7) k/uL Lymphocytes # (1.0-4.8) k/uL Monocytes # (0-1.0) k/uL Eosinophils # (0-0.7) k/uL Basophils # (0-0.2) k/uL PT (9.0-12.0) sec INR (<1.2) APTT (22.0-30.0) sec Sodium (137-145) mmol/L Potassium (3.5-5.1) mmol/L Chloride (98-107) mmol/L Carbon Dioxide (22-30) mmol/L Anion Gap mmol/L BUN (9-20) mg/dL Creatinine (0.66-1.25) mg/dL Est GFR (CKD-EPI)AfAm (>60 ml/min/1.73 sqM) Est GFR (CKD-EPI)NonAf (>60 ml/min/1.73 sqM) Glucose (74-99) mg/dL Calcium (8.4-10.2) mg/dL Magnesium (1.6-2.3) mg/dL Total Bilirubin (0.2-1.3) mg/dL AST (17-59) U/L ALT (4-49) U/L Alkaline Phosphatase (38-126) U/L Troponin I <0.012 (0.000-0.034) ng/mL NT-Pro-B Natriuret Pep pg/mL Total Protein (6.3-8.2) g/dL Albumin (3.5-5.0) g/dL - EKG Data -: EKG Interpreted by Me EKG Comments: 12-lead Electrocardiogram Interpretation Note EKG was reviewed and interpreted by myself. 12-lead ECG performed at 1753 is interpreted by me as revealing normal sinus rhythm at a rate of 71 beats per minute. [place] is normal. NE interval is 129 ms, QRS durations 115 ms, QTc is 423 ms.. There were no ST or T wave abnormalities to suggest myocardial ischemia or injury. R wave progression across the precordium was satisfactory. By my interpretation this EKG is non-diagnostic for acute ischemia. Disposition Clinical Impression: Atypical chest pain, Heart palpitations, Neck strain Disposition: ADMITTED IP TO THIS HOSP Condition: Stable Time of Disposition: 19:35
[2023-04-17] MEDS ORDERED: NALOXONE 0.4 MG/ML 1 ML VIAL IV PRN (19:51)
[2023-04-17] MEDS ORDERED: LORazepam 0.5 MG TAB PO STA (19:53)
[2023-04-17] MEDS ORDERED: RIVAROXABAN 20 MG TAB PO SCH (21:00)
[2023-04-17] MEDS ORDERED: cloNIDine HCL 0.1 MG TAB PO SCH (21:00)
[2023-04-17] MEDS: ACETAMINOPHEN TAB 325 MG TAB PO PRN (21:48)
[2023-04-17] MEDS: LOSARTAN 50 MG TAB PO SCH (21:50)
[2023-04-17] MEDS: metFORMIN 500 MG TAB PO SCH (21:50)
[2023-04-17] MEDS: hydrALAZINE HCL 50 MG TAB PO SCH (21:50)
[2023-04-17] MEDS: KETOROLAC 15 MG/ML 1 ML VIAL IVP PRN (22:12)
[2023-04-18 02:27] VITALS: PULSE 61
[2023-04-18] MEDS: ACETAMINOPHEN TAB 325 MG TAB PO PRN (05:16)
[2023-04-18] MEDS ORDERED: LEVOTHYROXINE 88 MCG TAB PO SCH (06:30)
[2023-04-18 08:01] VITALS: BP 101/64; RESP 16; TEMP 97.6
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
[2023-04-18] MEDS ORDERED: POTASSIUM CHLORIDE ER 10 MEQ TAB.ER.PRT PO SCH (09:00)
[2023-04-18] MEDS ORDERED: ATORVASTATIN 20 MG TAB PO SCH (09:00)
[2023-04-18] MEDS ORDERED: PIOGLITAZONE 30 MG TAB PO SCH (09:00)
[2023-04-18] MEDS ORDERED: amLODIPine 10 MG TAB PO SCH (09:00)
[2023-04-18] MEDS ORDERED: FUROSEMIDE 40 MG TAB PO SCH (09:00)
[2023-04-18 09:22] LABS: Basophils # (A) 0.11 X 10*3/uL (0.00-0.10); Basophils % (A) 1.5 %; Eosinophils # (A) 0.56 X 10*3/uL (0.04-0.35); Eosinophils % (A) 7.6 %; HCT 39.5 % (39.6-50.0); HGB 13.3 d/dL (12.0-15.0); Lymphocytes % (A) 36.8 %; MCH 31.8 pg (27.0-32.0); MCHC 33.7 d/dL (32.0-37.0); MCV 94.5 FL (80.0-97.0); Mean Platelet Volume 11.2 FL (9.5-12.2); Monocytes # (A) 0.86 X 10*3/uL (0.20-1.00); Monocytes % (A) 11.7 %; NRBC Per 100 WBC 0 X 10*3/uL (0.00-0.01); Neutrophils # (A) 3.08 X 10*3/uL (1.80-7.70); Platelet Count 189 X 10*3/uL (140-440); RBC 4.18 X 10*6/uL (4.40-5.60); RDW 13.6 % (11.5-14.5); WBC 7.34 X 10*3/uL (4.50-10.00)
[2023-04-18] MEDS: LOSARTAN 50 MG TAB PO SCH (09:25)
[2023-04-18] MEDS: KETOROLAC 15 MG/ML 1 ML VIAL IVP PRN (09:26)
[2023-04-18] MEDS: metFORMIN 500 MG TAB PO SCH (09:26)
[2023-04-18] MEDS: hydrALAZINE HCL 50 MG TAB PO SCH (09:26)
[2023-04-18 09:28] LABS: BUN/Creat Ratio 16.92 Ratio (12.00-20.00); Calcium 9.5 mg/dL (8.7-10.3); Carbon Dioxide 22.4 mmol/L (21.6-31.8); Chloride 102 mmol/L (96-109); Glucose 104 mg/dL (70-110); Potassium 4.1 mmol/L (3.5-5.5); Sodium 138 mmol/L (135-145)
--- NOTE | 2023-04-18 15:47 | P.HPIM ---
History of Present Illness H&P Date: 04/18/23 This is a 78-year-old male who presented to the emergency department with feeling of palpitations and some neck straining. Patient denies he had chest pain on admission. Patient reports he follows with Dr. Anderson in the outpatient setting with a past medical history of atrial fibrillation, heart failure, diabetes mellitus, hyperlipidemia, hypertension, osteoarthritis, sleep apnea, thyroid disorder. Patient had imaging including chest x-ray on admission that showed low lung volumes with a hazy appearance representing atelectasis versus pulmonary edema and to correlate with serial BNP which was 85, troponins 3 were negative and other labs reviewed and within normal limits. EKG showed sinus rhythm. Patient was admitted under observation for cardiology evaluation. Cardiology evaluated the patient recommending outpatient follow-up and has cleared the patient. Patient normally with hypertension and reports has been following with Dr. Anderson in the outpatient setting and has been adjusting medications although patient is found to be slightly hypotensive of 101/64 would recommend holding Catapres and hydralazine and close outpatient follow-up. Patient reports he has an appointment with Dr. Anderson this Tuesday. Patient encouraged to monitor blood pressure daily and keep a diary of all readings. Patient was experiencing some neck tension and underwent CT cervical spine showed no evidence of cervical spine fracture moderate multilevel degenerative disc disease. Would recommend outpatient referral to cervical exchange specialist such as Dr. Singh. Review Of Systems: Constitutional: No fever, no chills, no night sweats. No weight change. No weakness, fatigue or lethargy. No daytime sleepiness. EENT: No headache. No blurred vision or double vision, no loss of vision. No loss of Hearing, no ringing in the ears, no dizziness. No nasal drainage or congestion. No epistaxis. No sore throat. Reported some neck tension Lungs: No shortness of breath, cough, no sputum production. No wheezing. Cardiovascular: No chest pain, no lower extremity edema. Reported palpitations that have resolved. No paroxysmal nocturnal dyspnea. No orthopnea. No lightheadedness or dizziness. No syncopal episodes. Abdominal: No abdominal pain. No nausea, vomiting. No diarrhea. No constipation. No bloody or tarry stools.. No loss of appetite. Genitourinary: No dysuria, increased frequency, urgency. No urinary retention. Musculoskeletal: No myalgias. No muscle weakness, no gait dysfunction, no frequent falls. No back pain. No neck pain. Integumentary: No wounds, no lesions. No rash or pruritus. No unusual bruising. No change in hair or nails. Neurologic: No aphasia. No facial droop. No change in mentation. No head injury. No headache. No paralysis. No paresthesia. Psychiatric: No depression. Reported some anxiety. No mood swings. Endocrine: No abnormal blood sugars. No weight change. No excessive sweating or thirst. No cold intolerance. PHYSICAL EXAMINATION: GENERAL: The patient is alert and oriented x4, Well developed, well nourished. Obese HEENT: Pupils are round and equally reacting to light. EOMI. no scleral icterus. No conjunctival pallor. Normocephalic, atraumatic. No pharyngeal erythema. No thyromegaly. CARDIOVASCULAR: S1 and S2 muffled PULMONARY: Breath sounds clear to auscultation bilaterally with no wheezing or rhonchi noted. ABDOMEN: soft. Nontender on exam. obese. non-distended, normoactive bowel sounds. No palpable organomegaly. MUSCULOSKELETAL: No joint swelling or deformity. EXTREMITIES: No cyanosis, clubbing, or pedal edema. NEUROLOGICAL: Gross neurological examination did not reveal any focal deficits. SKIN: No rashes. Assessment: Chest pain, atypical, ruled out ACS Neck pain, possibly secondary to degenerative disc disease Atrial fibrillation history History of heart failure, unknown EF Diabetes mellitus, type II Hyperlipidemia History of hypertension History of osteoarthritis Sleep apnea with a CPAP Former smoker Obesity with a BMI of 39.0 GI prophylaxis DVT prophylaxis Full code Plan: Recommend to continue with current medications and management with cardiology on consult. Cardiology evaluated the patient and has cleared the patient for discharge and recommending outpatient follow-up with Dr. Morales Patient continue current medications although recommend holding hydralazine and Catapres for now his blood pressures are somewhat on the lower side and recommend follow-up this week with primary care provider as well as cardiology Encourage the patient to monitor blood pressures daily and keep a diary of all readings for follow-up Would recommend orthopedic consult outpatient for some cervical stenosis noted on CT Patient will be discharged today. The impression and plan of care has been dictated by Kaley Hdez, nurse practitioner as directed. Dr. Sarkis MD I have performed a history and examination and MDM of this patient, discussed the same with the dictator, and agree with the dictator's assessment and plan as written ,documented as a scribe. Based on total visit time, I have performed more than 50% of the visit. Any additional findings or plans will be noted. Past Medical History Past Medical History: Atrial Fibrillation, Heart Failure, Diabetes Mellitus, Hyperlipidemia, Hypertension, Osteoarthritis (OA), Sleep Apnea/CPAP/BIPAP, Thyroid Disorder Additional Past Medical History / Comment(s): uses CPAP, SOB w/exertion History of Any Multi-Drug Resistant Organisms: None Reported Past Surgical History: Appendectomy, Cardiac Valve Replacement, Heart Catheterization, Orthopedic Surgery Additional Past Surgical History / Comment(s): aortic valve replaced 2004, ganglion cyst, pain injections, LT ANKLE SUGERY Past Anesthesia/Blood Transfusion Reactions: No Reported Reaction Past Psychological History: No Psychological Hx Reported Smoking Status: Former smoker Past Alcohol Use History: None Reported Additional Past Alcohol Use History / Comment(s): quiT smoking 30 yrs. ago, smoked about 4 yrs. Past Drug Use History: None Reported - Past Family History Father Family Medical History: Cancer Medications and Allergies Home Medications Medication Instructions Recorded Confirmed Type Furosemide [Lasix] 40 mg PO BID 12/28/16 04/17/23 History Levothyroxine Sodium [Levoxyl] 175 mcg PO DAILY 12/28/16 04/17/23 History amLODIPine [Norvasc] 10 mg PO DAILY 12/28/16 04/17/23 History Losartan [Cozaar] 50 mg PO BID 12/08/18 04/17/23 History Rivaroxaban [Xarelto] 20 mg PO HS 03/14/23 04/17/23 History Atorvastatin [Lipitor] 20 mg PO DAILY 04/17/23 04/17/23 History Meloxicam [Mobic] 7.5 mg PO BID 04/17/23 04/17/23 History Pioglitazone [Actos] 30 mg PO DAILY 04/17/23 04/17/23 History Potassium Chloride ER [K-Dur 10] 10 meq PO DAILY 04/17/23 04/17/23 History metFORMIN HCL [Glucophage] 1,000 mg PO BID 04/17/23 04/17/23 History Acetaminophen Tab [Tylenol] 650 mg PO Q6HR PRN tab 04/18/23 Rx Allergies Allergy/AdvReac Type Severity Reaction Status Date / Time Penicillins Allergy Rash/Hives Verified 04/17/23 18:53 codeine AdvReac Itching Verified 04/17/23 18:53 Physical Exam Vitals: Vital Signs Temp Pulse Pulse Resp BP BP Pulse Ox 04/18/23 07:00 97.6 F 61 16 101/64 97 04/18/23 01:52 97.4 F L 61 12 109/68 96 04/17/23 20:45 97.8 F 68 12 152/79 97 04/17/23 20:26 72 18 139/91 96 04/17/23 19:27 68 18 140/78 96 04/17/23 19:02 68 19 135/78 97 04/17/23 18:40 98.0 F 74 20 159/87 94 L 04/17/23 18:00 75 04/17/23 17:43 98 F 77 24 150/74 99 Intake and Output 04/17/23 04/18/23 04/18/23 22:59 06:59 14:59 Other: # Voids 1 Weight 123.377 kg Results CBC & Chem 7: 04/18/23 03:43 04/18/23 03:43 Labs: Abnormal Lab Results - Last 24 Hours (Table) 04/17/23 04/18/23 04/18/23 Range/Units 18:13 03:43 03:43 RBC 4.18 L (4.40-5.60) X 10*6/uL Hct 39.5 L (39.6-50.0) % Eosinophils # 0.56 H (0.04-0.35) X 10*3/uL Basophils # 0.11 H (0.00-0.10) X 10*3/uL Anion Gap 13.60 H (4.00-12.00) mmol/L Est GFR (CKD-EPI) 57 L (>=60) Glucose 131 H (74-99) mg/dL Total Protein 9.2 H (6.3-8.2) g/dL Thrombosis Risk Factor Assmnt - Choose All That Apply Any of the Below Risk Factors Present?: Yes Each Factor Represents 1 point: Obesity (BMI >25), Swollen legs (current) Other Risk Factors: Yes Each Risk Factor Represents 3 Points: Age 75 years or older Other congenital or acquired thrombophilia - If yes, enter type in comment: No Thrombosis Risk Factor Assessment Total Risk Factor Score: 5 Thrombosis Risk Factor Assessment Level: High Risk Assessment and Plan Time with Patient: Greater than 30
--- NOTE | 2023-04-20 14:51 | P.DS ---
Providers Date of admission: 04/17/23 19:51 Expected date of discharge: 04/18/23 Attending physician: Codie Adams MD Consults: 04/17/23 19:51 Consult Physician Routine Consulting Provider: [facility] Consult Reason/Comments: atypical chest pain, palpatations Do you want consulting provider notified?: Yes Primary care physician: Dar Anderson [facility] Course: Final diagnosis Chest pain, atypical, ruled out ACS Neck pain, possibly secondary to degenerative disc disease Atrial fibrillation history History of heart failure, unknown EF Diabetes mellitus, type II Hyperlipidemia History of hypertension History of osteoarthritis Sleep apnea with a CPAP Former smoker Obesity with a BMI of 39.0 GI prophylaxis DVT prophylaxis Full code Discharge disposition Patient is being discharged in a stable condition with guarded prognosis to home. Patient will follow-up with Dr. Anderson in the outpatient setting upon discharge. Patient is to follow-up with cardiology outpatient in one week as scheduled. Resources provided for outpatient orthopedic services Dr. Singh. Total time taken is greater than 35 minutes. Hospital course This is a 78-year-old male who was recently admitted with palpitations and some neck pain being closely monitored. Patient has been seen and evaluated by cardiology recommending outpatient follow-up and to continue with current medica tions. Patient is currently rate controlled. Please refer to cardiology notes for further HPI. Patient also having some neck tension and recommend outpatient follow-up with orthopedic surgery Dr. Singh's office. Resources were provided. Patient instructed to follow-up with primary care provider this week. Currently no reports of chest pain, shortness of breath, or palpitations. Patient is af ebrile. No reports of nausea or vomiting and patient is tolerating diet. Patient will be discharged home today. Physical exam: Gen: This is a 78-year-old male who is awake, alert and oriented 3, well- developed, well-nourished, obese HEENT: Head is atraumatic, normocephalic. Pupils equal, round. Sclerae is anicteric. NECK: Supple. No JVD. No lymphadenopathy. No thyromegaly. LUNGS: Clear to auscultation. No wheezes or rhonchi. No intercostal retractions. HEART: Regular rate and rhythm. No murmur. ABDOMEN: Soft. Obese. Bowel sounds are present. No masses. No tenderness. EXTREMITIES: No pedal edema. No calf tenderness. NEUROLOGICAL: Patient is awake, alert and oriented x3. Cranial nerves 2 through 12 are grossly intact. Please refer to medication reconciliation sheet for a list of medications. The impression and plan of care has been dictated by Kaley Hdez, Nurse Practitioner as directed. Dr. Sarkis MD I have performed a history and examination and MDM of this patient, discussed the same with the dictator, and agree with the dictator's assessment and plan as written ,documented as a scribe. Based on total visit time, I have performed more than 50% of the visit. Patient Condition at Discharge: Stable Plan - Discharge Summary New Discharge Prescriptions: New Acetaminophen Tab [Tylenol] 650 mg PO Q6HR PRN tab PRN Reason: Mild Pain Or Fever > 100.5 Continue Levothyroxine Sodium [Levoxyl] 175 mcg PO DAILY Furosemide [Lasix] 40 mg PO BID amLODIPine [Norvasc] 10 mg PO DAILY Losartan [Cozaar] 50 mg PO BID Rivaroxaban [Xarelto] 20 mg PO HS Potassium Chloride ER [K-Dur 10] 10 meq PO DAILY Pioglitazone [Actos] 30 mg PO DAILY Atorvastatin [Lipitor] 20 mg PO DAILY metFORMIN HCL [Glucophage] 1,000 mg PO BID Meloxicam [Mobic] 7.5 mg PO BID Discontinued hydrALAZINE HCL [Apresoline] 50 mg PO BID cloNIDine HCL [Catapres] 0.1 mg PO HS Discharge Medication List Furosemide [Lasix] 40 mg PO BID 12/28/16 [History] Levothyroxine Sodium [Levoxyl] 175 mcg PO DAILY 12/28/16 [History] amLODIPine [Norvasc] 10 mg PO DAILY 12/28/16 [History] Losartan [Cozaar] 50 mg PO BID 12/08/18 [History] Rivaroxaban [Xarelto] 20 mg PO HS 03/14/23 [History] Atorvastatin [Lipitor] 20 mg PO DAILY 04/17/23 [History] Meloxicam [Mobic] 7.5 mg PO BID 04/17/23 [History] Pioglitazone [Actos] 30 mg PO DAILY 04/17/23 [History] Potassium Chloride ER [K-Dur 10] 10 meq PO DAILY 04/17/23 [History] metFORMIN HCL [Glucophage] 1,000 mg PO BID 04/17/23 [History] Acetaminophen Tab [Tylenol] 650 mg PO Q6HR PRN tab 04/18/23 [Rx] Follow up Appointment(s)/Referral(s): Prabhjot Morales MD [STAFF PHYSICIAN] - 1 Week Henna Singh DO [Doctor of Osteopathic Medicine] - 1 Week Dar Anderson MD [Primary Care Provider] - 1-2 days Activity/Diet/Wound Care/Special Instructions: Activity Limited until follow-up Follow-up with primary care provider at scheduled appointment and discuss medication adjustments Follow-up with cardiology outpatient Discharge Disposition: HOME SELF-CARE
== END 2023-04-18 14:30 | disposition home or self-care (01) ==
LOC: EC 17:41 → 6NMEDSUR 19:51
PROVIDERS: ADMIT Internal Medicine; ATTEND Internal Medicine
DX: R07.89 Other chest pain (principal); R00.2 Palpitations; S16.1XXA Strain of muscle, fascia and tendon at neck level, initial encounter; M50.30 Other cervical disc degeneration, unspecified cervical region; I11.0 Hypertensive heart disease with heart failure; I50.9 Heart failure, unspecified; I48.19 Other persistent atrial fibrillation; E11.9 Type 2 diabetes mellitus without complications; E78.5 Hyperlipidemia, unspecified; M25.78 Osteophyte, vertebrae; I95.9 Hypotension, unspecified; G47.33 Obstructive sleep apnea (adult) (pediatric); E07.9 Disorder of thyroid, unspecified; F41.9 Anxiety disorder, unspecified; R05.9 Cough, unspecified; I08.1 Rheumatic disorders of both mitral and tricuspid valves; M19.90 Unspecified osteoarthritis, unspecified site; Z68.39 Body mass index [BMI] 39.0-39.9, adult; E66.9 Obesity, unspecified; Z79.890 Hormone replacement therapy; Z79.01 Long term (current) use of anticoagulants; Z79.1 Long term (current) use of non-steroidal anti-inflammatories (NSAID); Z79.84 Long term (current) use of oral hypoglycemic drugs; Z79.899 Other long term (current) drug therapy; Z88.0 Allergy status to penicillin; Z88.5 Allergy status to narcotic agent; Z95.2 Presence of prosthetic heart valve; Z90.49 Acquired absence of other specified parts of digestive tract; Z98.890 Other specified postprocedural states; Z87.891 Personal history of nicotine dependence; Z80.9 Family history of malignant neoplasm, unspecified; Z82.49 Family history of ischemic heart disease and other diseases of the circulatory system
CPT/HCPCS: 96376 ×2; 96374; 99285; 36415; 93005; 83880; 80053; 80048; 83735; 84484; 85025 ×2; 85610; 85730; 71046; 72125; G0378 ×2; J1885 ×2

== ENCOUNTER → 2024-11-30 | Outpatient (CLI) | payer MEDICARE ==
[2024-11-30 14:51] LABS: Anion Gap 8 mmol/L; Blood Urea Nitrogen 22 mg/dL (9-20); Carbon Dioxide 30 mmol/L (22-30); Chloride 99 mmol/L (98-107); Glucose 112 mg/dL (74-99); Potassium 4.8 mmol/L (3.5-5.1); Sodium 137 mmol/L (137-145)
[2024-11-30 14:52] LABS: Calcium 9.9 mg/dL (8.4-10.2)
[2024-11-30 14:53] LABS: ALT 19 U/L (4-49); AST 25 U/L (17-59); African American GFR (CKD) 72 (>60 ml/min/1.73 sqM); Albumin 4.8 g/dL (3.5-5.0); Alkaline Phosphatase 73 U/L (38-126); Non-African American GFR(CKD) 63 (>60 ml/min/1.73 sqM); Total Bilirubin 0.9 mg/dL (0.2-1.3)
[2024-11-30 14:54] LABS: HCT 52.1 % (39.0-53.0); HGB 16.8 gm/dL (13.0-17.5); MCH 31.7 pg (25.0-35.0); MCHC 32.2 g/dL (31.0-37.0); MCV 98.4 fL (80.0-100.0); Platelet Count 253 k/uL (150-450); RBC 5.29 m/uL (4.30-5.90); RDW 13.9 % (11.5-15.5)
[2024-11-30 14:55] LABS: Mean Platelet Volume 7.7
== END | disposition home or self-care (01) ==
LOC: LABWHC1 10:37
PROVIDERS: ATTEND Internal Medicine Interventional Cardiology
DX: I48.11 Longstanding persistent atrial fibrillation (principal); E78.2 Mixed hyperlipidemia
CPT/HCPCS: 80053; 80061; 85027

== ENCOUNTER 2024-12-04 05:35 | Day surgery (SDC) | payer MEDICARE ==
[2024-12-04] MEDS: IV FLUID CONTINUATION 500 ML IV ONE (06:21)
[2024-12-04 06:48] LABS: Glucose,Whole Blood 98 mg/dL (70-110)
[2024-12-04] MEDS ORDERED: SODIUM CHLORIDE 0.9% 1,000 ML IV SCH (07:00)
[2024-12-04 07:07] VITALS: TEMP 98
[2024-12-04] MEDS ORDERED: PROPOFOL 10 MG/ML 20 ML VIAL IV ONE (07:11)
[2024-12-04] MEDS ORDERED: LIDOCAINE 1% INJ 10MG/ML (20 ML MDV) ONE (07:11)
[2024-12-04] MEDS: BENZOCAINE SPRAY 1 EACH MM ONE (07:23)
--- NOTE | 2024-12-04 07:39 | P.PCN ---
Date of Procedure: 12/04/24 Description of Procedure: Indication: Atrial fibrillation Procedure Description: After explaining the procedure to the patient, it's risk and complications, blood pressure, heart rate and O2 saturation were monitored. The throat was sprayed with Cetacaine. Patient received sedation per anesthesia department. The probe was introduced into the esophagus without difficulty. Images were obtained. Following that, the probe was removed. There was no immediate complication. Findings: Left atrial size is dilated, left atrial appendage is normal. Left ventricular size and systolic function are normal. Mitral annulus calcification was noted. Tricuspid valve appears to be normal. A TAVR was noted with normal appearance. Descending thoracic aorta appears to be normal. No pericardial effusion was noted. Contrast bubble study revealed no shunting across the interatrial septum. Doppler: Pulse wave and color Doppler were obtained, and revealed mild mitral regurgitation and tricuspid regurgitation. There was no shunting by color Doppler study. Conclusion: 1. Dilated left atrium with normal appearance of the left atrial appendage 2. Normal left ventricular size and systolic function 3. TAVR noted with normal appearance and function 4. Mild mitral regurgitation 5. No shunting across the interatrial septum Cardioversion: After obtaining KELLE and sedated state per anesthesia department synchronized cardioversion with 200 J x 2 was successful in restoring sinus mechanism, there was no immediate complications.
[2024-12-04 08:21] VITALS: RESP 18
[2024-12-04 08:37] VITALS: BP 167/92; PULSE 81
[2024-12-04] MEDS ORDERED: NON FORMULARY DRUG (Metformin Hcl [Glucophage] 1,000 MG Tablet) PO SCH (09:00)
[2024-12-04] MEDS ORDERED: APIXABAN 5 MG TAB PO SCH (09:00)
[2024-12-04] MEDS ORDERED: LOSARTAN 50 MG TAB PO SCH (09:00)
[2024-12-04] MEDS ORDERED: NON FORMULARY DRUG (Empagliflozin [Jardiance] 25 MG Tablet) PO SCH (09:00)
[2024-12-04] MEDS ORDERED: LEVOTHYROXINE SODIUM 175 MCG PO SCH (09:00)
[2024-12-04] MEDS ORDERED: FUROSEMIDE 40 MG TAB PO SCH (09:00)
[2024-12-04] MEDS ORDERED: ESCITALOPRAM 10 MG TAB PO SCH (09:00)
[2024-12-04] MEDS ORDERED: ATORVASTATIN 20 MG TAB PO SCH (21:00)
== END 2024-12-04 08:57 | disposition home or self-care (01) ==
LOC: OR 05:35
PROVIDERS: ATTEND Internal Medicine Interventional Cardiology
DX: I48.11 Longstanding persistent atrial fibrillation (principal); I08.1 Rheumatic disorders of both mitral and tricuspid valves; E11.9 Type 2 diabetes mellitus without complications; I10 Essential (primary) hypertension; E78.2 Mixed hyperlipidemia; Z88.5 Allergy status to narcotic agent; Z88.0 Allergy status to penicillin; Z95.2 Presence of prosthetic heart valve; Z87.891 Personal history of nicotine dependence; Z79.84 Long term (current) use of oral hypoglycemic drugs; Z79.01 Long term (current) use of anticoagulants; Z79.899 Other long term (current) drug therapy
CPT/HCPCS: 93312; 93320; 93325; 92960; J2003; J2704